=== PATIENT | male | born 1985 | race Caucasian/White ===

== ENCOUNTER 2022-12-17 07:14 | Emergency (ER) | payer OTHER ==
[2022-12-17 07:27] VITALS: BP 148/87; PULSE 80; RESP 18; TEMP 97.5; BMI 31.6
== END 2022-12-17 07:56 | disposition home or self-care (01) ==
LOC: FER 07:14
DX: Z77.21 Contact with and (suspected) exposure to potentially hazardous body fluids (principal)
CPT/HCPCS: 99282-25